=== PATIENT | male | born 1970 | race Two or more races ===

== ENCOUNTER 2019-07-26 13:57 | Inpatient (IN) | payer OTHER ==
[~2019-07-26] VITALS: Ht 175.3 cm; Wt 80.8 kg
[2019-07-26 14:36] LABS: AMPHET/METH SCREEN,URINE NEGATIVE (NEGATIVE); BARBITURATE SCREEN, URINE NEGATIVE (NEGATIVE); BENZODIAZEPINES SCREEN,URINE NEGATIVE (NEGATIVE); CANNABINOID SCREEN,URINE NEGATIVE (NEGATIVE); COCAINE SCREEN,URINE NEGATIVE (NEGATIVE); METHADONE SCREEN, URINE NEGATIVE (NEGATIVE); OPIATE SCREEN,URINE NEGATIVE (NEGATIVE); PHENCYCLIDINE SCREEN,URINE NEGATIVE (NEGATIVE)
[2019-07-26 14:37] LABS: BASOPHILS % (AUTO) 0.7 % (0.0-2.0); EOSINOPHILS % (AUTO) 2.8 % (1.0-6.0); HEMATOCRIT 49.2 % (41-53); HEMOGLOBIN 16.7 g/dL (13.5-17.5); LYMPHOCYTES # (AUTO) 1.8 K/uL (1.0-4.8); LYMPHOCYTES % (AUTO) 22.2 % (22.0-44.0); MEAN CORPUSCULAR HEMOGLOBIN 30.8 pg (26.0-34.0); MEAN CORPUSCULAR HGB CONC 33.9 G/dL (31.0-37.0); MEAN CORPUSCULAR VOLUME 91 fL (80-100); MONOCYTES # (AUTO) 0.5 K/uL (0.1-1.0); MONOCYTES % (AUTO) 5.7 % (2.0-9.0); NEUTROPHILS # (AUTO) 5.5 K/uL (1.8-7.7); NEUTROPHILS % (AUTO) 68.6 % (40.0-70.0); PLATELET COUNT (AUTO) 227 K/uL (150-450); RED BLOOD CELL COUNT(AUTO) 5.42 MIL/uL (4.50-5.90); RED CELL DISTRIBUTION WIDTH 12.6 % (11.5-14.5)
[2019-07-26 14:47] LABS: ANION GAP 12 mmol/L (8-16); CALCIUM, TOTAL 8.8 mg/dL (8.8-10.5); CARBON DIOXIDE 25 mmol/L (22-29); CHLORIDE 102 mmol/L (98-107); CREATININE 1.12 mg/dL (0.60-1.30); GLOMERULAR FILTR. RATE CALC > 60 mL/min (>60); GLUCOSE,RANDOM 123 mg/dL (70-110); SODIUM SERUM 139 mmol/L (136-145); UREA NITROGEN, BLOOD 17 mg/dL (7-18)
[2019-07-26 14:53] LABS: ALANINE AMINOTRANSFERASE 27 U/L (12-78); ALBUMIN 4.3 g/dL (3.4-5.0); ALKALINE PHOSPHATASE 75 U/L (46-116); ASPARTATE AMINOTRANSFERASE 20 U/L (15-37); TOTAL PROTEIN, SERUM 7.7 g/dL (6.4-8.2)
[2019-07-26] MEDS ORDERED: MAGNESIUM HYDROXIDE SUSPENSION 30 ML UDCUP PO PRN (17:00)
[2019-07-26 17:33] VITALS: BP 155/66
[2019-07-26 19:55] VITALS: BP 105/67
[2019-07-26] MEDS: DOCUSATE SODIUM 100 MG CAPSULE PO SCH (21:00)
[2019-07-26 23:20] VITALS: BP 101/57
[2019-07-27] VITALS (7 sets, daily range): BP systolic 91–133; BP diastolic 57–79
[2019-07-27] MEDS: ACETAMINOPHEN 325 MG TABLET PO PRN ×2 (04:18→10:34)
[2019-07-27] MEDS: FAMOTIDINE 20 MG TABLET PO SCH (08:00)
[2019-07-27] MEDS: DOCUSATE SODIUM 100 MG CAPSULE PO SCH ×2 (08:00→20:36)
[2019-07-27] MEDS: RisperiDONE 2 MG TABLET PO SCH ×2 (10:34→20:36)
[2019-07-28 04:25] VITALS: BP 144/73
[2019-07-28] MEDS: ACETAMINOPHEN 325 MG TABLET PO PRN (06:27)
[2019-07-28 07:55] VITALS: BP 112/75
[2019-07-28] MEDS: DOCUSATE SODIUM 100 MG CAPSULE PO SCH ×2 (08:09→20:21)
[2019-07-28] MEDS: RisperiDONE 2 MG TABLET PO SCH ×2 (08:09→20:21)
[2019-07-28] MEDS: FAMOTIDINE 20 MG TABLET PO SCH (08:09)
[2019-07-28 12:07] VITALS: BP 115/78
[2019-07-28 15:47] VITALS: BP 113/70
[2019-07-28 20:11] VITALS: BP 132/80
[2019-07-29 00:02] VITALS: BP 111/69
[2019-07-29 05:43] VITALS: BP 120/79
[2019-07-29 07:36] VITALS: BP 114/56
[2019-07-29] MEDS: RisperiDONE 2 MG TABLET PO SCH ×2 (07:55→20:24)
[2019-07-29] MEDS: DOCUSATE SODIUM 100 MG CAPSULE PO SCH ×2 (07:55→20:24)
[2019-07-29] MEDS: FAMOTIDINE 20 MG TABLET PO SCH (07:55)
[2019-07-29] MEDS: ACETAMINOPHEN 325 MG TABLET PO PRN ×2 (10:31→20:24)
[2019-07-29 11:40] VITALS: BP 99/55
[2019-07-29 15:40] VITALS: BP 125/84
[2019-07-29 20:04] VITALS: BP 101/66
[2019-07-30 00:08] VITALS: BP 105/65
[2019-07-30 05:45] VITALS: BP 98/59
[2019-07-30] MEDS: ACETAMINOPHEN 325 MG TABLET PO PRN (06:00)
[2019-07-30 07:47] VITALS: BP 113/54
[2019-07-30] MEDS: FAMOTIDINE 20 MG TABLET PO SCH (08:12)
[2019-07-30] MEDS: DOCUSATE SODIUM 100 MG CAPSULE PO SCH (08:12)
[2019-07-30] MEDS: RisperiDONE 2 MG TABLET PO SCH (08:12)
[2019-07-30] MEDS ORDERED: RISP2 PO (09:22)
[2019-07-30 11:14] VITALS: BP 96/66
== END 2019-07-30 12:40 | DRG 885 ==
LOC: EMS 13:58 → 6S 16:52
PROVIDERS: ADMIT Internal Medicine; ATTEND Internal Medicine
DX: F20.0 Paranoid schizophrenia (principal); F31.9 Bipolar disorder, unspecified; Z91.19 Patient's noncompliance with other medical treatment and regimen; Z79.899 Other long term (current) drug therapy
CPT/HCPCS: G0480

== ENCOUNTER 2023-06-08 18:44 | Inpatient (IN) | payer OTHER ==
[~2023-06-08] VITALS: Ht 172.7 cm; Wt 97.3 kg
[~2023-06-08 18:44] MED LIST: RISP2TAB45 PO
[2023-06-08 22:39] LABS: COVID AG,FIA SOURCE NASAL SWAB
[2023-06-08 22:41] LABS: BASOPHILS % (AUTO) 0.5 % (0.0-2.0); EOSINOPHILS % (AUTO) 1.8 % (1.0-6.0); HEMATOCRIT 44.7 % (41-53); LYMPHOCYTES # (AUTO) 1.7 K/uL (1.0-4.8); LYMPHOCYTES % (AUTO) 26.4 % (22.0-44.0); MEAN CORPUSCULAR HEMOGLOBIN 30.2 pg (26.0-34.0); MEAN CORPUSCULAR HGB CONC 33.5 G/dL (31.0-37.0); MEAN CORPUSCULAR VOLUME 90 fL (80-100); MONOCYTES # (AUTO) 0.4 K/uL (0.1-1.0); MONOCYTES % (AUTO) 6.6 % (2.0-9.0); NEUTROPHILS # (AUTO) 4.2 K/uL (1.8-7.7); NEUTROPHILS % (AUTO) 64.7 % (40.0-70.0); PLATELET COUNT (AUTO) 197 K/uL (150-450); RED BLOOD CELL COUNT(AUTO) 4.96 MIL/uL (4.50-5.90); RED CELL DISTRIBUTION WIDTH 12.9 % (11.5-14.5)
[2023-06-08 22:51] LABS: ANION GAP 12 mmol/L (8-16); CARBON DIOXIDE 28 mmol/L (22-29); CHLORIDE 104 mmol/L (98-107); CREATININE 1.06 mg/dL (0.60-1.30); GLOMERULAR FILTR. RATE CALC > 60 mL/min (>60); GLUCOSE,RANDOM 150 mg/dL (70-110); POTASSIUM 3.6 mmol/L (3.5-5.1); SODIUM SERUM 144 mmol/L (136-145)
[2023-06-08 22:57] LABS: ALANINE AMINOTRANSFERASE 36 U/L (12-78); ALBUMIN 3.6 g/dL (3.4-5.0); ALKALINE PHOSPHATASE 72 U/L (46-116); ASPARTATE AMINOTRANSFERASE 20 U/L (15-37); BILIRUBIN,TOTAL 0.9 mg/dL (0.1-1.0); TOTAL PROTEIN, SERUM 7.2 g/dL (6.4-8.2)
[2023-06-08 22:59] LABS: AMPHET/METH SCREEN,URINE NEGATIVE (NEGATIVE); BARBITURATE SCREEN, URINE NEGATIVE (NEGATIVE); BENZODIAZEPINES SCREEN,URINE NEGATIVE (NEGATIVE); CANNABINOID SCREEN,URINE NEGATIVE (NEGATIVE); COCAINE SCREEN,URINE NEGATIVE (NEGATIVE); METHADONE SCREEN, URINE NEGATIVE (NEGATIVE); OPIATE SCREEN,URINE NEGATIVE (NEGATIVE); PHENCYCLIDINE SCREEN,URINE NEGATIVE (NEGATIVE)
[2023-06-08] MEDS ORDERED: RisperiDONE 1 MG TABLET PO ONE (23:00)
[2023-06-08] MEDS ORDERED: ACETAMINOPHEN 325 MG TABLET PO PRN (23:00)
[2023-06-09 00:30] VITALS: BP 105/66; PULSE 79; RESP 20; TEMP 97.3
[2023-06-09 04:57] VITALS: BP 108/62; PULSE 75; RESP 18; TEMP 98.3
[2023-06-09] MEDS ORDERED: MAGNESIUM HYDROXIDE SUSPENSION 30 ML UDCUP PO PRN (07:45)
[2023-06-09] MEDS ORDERED: ZOLPIDEM TARTRATE 5 MG TABLET PO PRN (07:45)
[2023-06-09] MEDS ORDERED: ACETAMINOPHEN 325 MG TABLET PO PRN (07:45)
[2023-06-09 07:48] VITALS: BP 104/71; PULSE 81; RESP 18; TEMP 97.8
[2023-06-09] MEDS: FAMOTIDINE 20 MG TABLET PO SCH (08:27)
[2023-06-09] MEDS: MULTIVITAMINS WITH MINERALS, THERAPEUTIC TABLET PO SCH (11:42)
[2023-06-09 15:26] VITALS: BP 110/69; PULSE 80; RESP 20; TEMP 98.5
[2023-06-09 19:30] VITALS: BP 113/74; PULSE 58; RESP 18; TEMP 97.8
[2023-06-10 04:00] VITALS: BP 107/78; PULSE 79; RESP 20; TEMP 97.7
[2023-06-10 08:06] VITALS: BP 128/77; PULSE 71; RESP 20; TEMP 98.3
[2023-06-10] MEDS: MULTIVITAMINS WITH MINERALS, THERAPEUTIC TABLET PO SCH (08:27)
[2023-06-10] MEDS: FAMOTIDINE 20 MG TABLET PO SCH (08:27)
[2023-06-10 15:48] VITALS: BP 122/79; PULSE 74; RESP 20; TEMP 98
[2023-06-10 20:01] VITALS: BP 115/64; PULSE 92; RESP 18; TEMP 98.2
[2023-06-11 04:20] VITALS: BP 108/73; PULSE 68; RESP 20; TEMP 97.7
[2023-06-11] MEDS: FAMOTIDINE 20 MG TABLET PO SCH (07:51)
[2023-06-11] MEDS: MULTIVITAMINS WITH MINERALS, THERAPEUTIC TABLET PO SCH (07:52)
[2023-06-11 15:49] VITALS: BP 119/75; PULSE 72; RESP 20; TEMP 97.3
[2023-06-11 19:50] VITALS: BP 111/72; PULSE 86; RESP 20; TEMP 97.5
== END 2023-06-11 21:23 | DRG 885 ==
LOC: EMS 18:45 → 6S 22:30
PROVIDERS: ADMIT Internal Medicine; ATTEND Internal Medicine
DX: F29 Unspecified psychosis not due to a substance or known physiological condition (principal); F20.9 Schizophrenia, unspecified; E66.9 Obesity, unspecified; Z68.32 Body mass index [BMI] 32.0-32.9, adult; F31.9 Bipolar disorder, unspecified; Z20.822 Contact with and (suspected) exposure to COVID-19; Z79.899 Other long term (current) drug therapy
CPT/HCPCS: 80053; 80307; 85025; 99285; G0480

== ENCOUNTER 2025-03-01 20:19 | Emergency (ER) | payer OTHER ==
[~2025-03-01] VITALS: Ht 170.2 cm; Wt 88.0 kg
[~2025-03-01 20:19] MED LIST changes: +OLAN10TA74 PO; -RISP2TAB45 PO
[2025-03-01] MEDS: ACETAMINOPHEN 500 MG TABLET PO ONE (21:34)
[2025-03-01] MEDS: IBUPROFEN 600 MG TABLET PO ONE (21:35)
[2025-03-01 23:00] VITALS: BP 141/79; PULSE 82; RESP 18; TEMP 98.3; O2SAT 100
== END 2025-03-01 23:17 ==
LOC: EMS 20:19
DX: S09.90XA Unspecified injury of head, initial encounter (principal); M54.2 Cervicalgia; F20.9 Schizophrenia, unspecified; F31.9 Bipolar disorder, unspecified; Y04.0XXA Assault by unarmed brawl or fight, initial encounter; Y93.89 Activity, other specified; Y92.89 Other specified places as the place of occurrence of the external cause; Y99.8 Other external cause status
CPT/HCPCS: 70450; 72125; 99284

== ENCOUNTER 2025-03-10 20:25 | Inpatient (IN) | payer OTHER ==
[~2025-03-10] VITALS: Ht 170.2 cm; Wt 84.0 kg
[2025-03-10 21:06] LABS: BASOPHILS % (AUTO) 0.6 % (0.0-2.0); EOSINOPHILS % (AUTO) 1.4 % (1.0-6.0); HEMATOCRIT 45.3 % (41-53); HEMOGLOBIN 15.3 g/dL (13.5-17.5); LYMPHOCYTES # (AUTO) 1.7 K/uL (1.0-4.8); LYMPHOCYTES % (AUTO) 27.1 % (22.0-44.0); MEAN CORPUSCULAR HEMOGLOBIN 29.5 pg (26.0-34.0); MEAN CORPUSCULAR HGB CONC 33.8 G/dL (31.0-37.0); MEAN CORPUSCULAR VOLUME 87 fL (80-100); MONOCYTES # (AUTO) 0.3 K/uL (0.1-1.0); MONOCYTES % (AUTO) 5.4 % (2.0-9.0); NEUTROPHILS # (AUTO) 4.2 K/uL (1.8-7.7); NEUTROPHILS % (AUTO) 65.5 % (40.0-70.0); PLATELET COUNT (AUTO) 204 K/uL (150-450); RED BLOOD CELL COUNT(AUTO) 5.19 MIL/uL (4.50-5.90); RED CELL DISTRIBUTION WIDTH 13.9 % (11.5-14.5); WHITE BLOOD COUNT (AUTO) 6.4 K/uL (4.5-11.0)
[2025-03-10 21:14] LABS: ANION GAP 4 mmol/L (8-16); CALCIUM, TOTAL 9.3 mg/dL (8.8-10.5); CARBON DIOXIDE 30 mmol/L (22-29); CHLORIDE 102 mmol/L (98-107); CREATININE 0.89 mg/dL (0.60-1.30); GLOMERULAR FILTR. RATE CALC > 60 mL/min (>60); GLUCOSE,RANDOM 97 mg/dL (70-110); POTASSIUM 3.8 mmol/L (3.5-5.1); SODIUM SERUM 136 mmol/L (136-145); UREA NITROGEN, BLOOD 13 mg/dL (7-18)
[2025-03-10 21:21] LABS: ALCOHOL, BLOOD (SERUM) < 3 mg/dL (0-10)
[2025-03-10 23:20] LABS: COVID AG,FIA SOURCE NASAL SWAB
[2025-03-10 23:23] LABS: APPEARANCE,URINE CLEAR (CLEAR); BILIRUBIN,URINE NEGATIVE (NEGATIVE); COLOR,URINE COLORLESS (YELLOW); GLUCOSE, URINE (UA) NEGATIVE (NEGATIVE); KETONES,URINE NEGATIVE (NEGATIVE); LEUKOCYTE ESTERASE ,URINE NEGATIVE (NEGATIVE); NITRATE,URINE NEGATIVE (NEGATIVE); OCCULT BLOOD,URINE NEGATIVE (NEGATIVE); PROTEIN,URINE NEGATIVE (NEGATIVE); SPECIFIC GRAVITIY, URINE 1.002 (1.003-1.030); UROBILINOGEN,URINE <=1.0 mg/dL (<=1.0)
[2025-03-10] MEDS ORDERED: ZOLPIDEM TARTRATE 5 MG TABLET PO PRN (23:30)
[2025-03-10] MEDS ORDERED: MAGNESIUM HYDROXIDE SUSPENSION 30 ML UDCUP PO PRN (23:30)
[2025-03-10 23:31] LABS: ALCOHOL, URINE DRUG SCREEN NEGATIVE (NEGATIVE); AMPHET/METH SCREEN,URINE NEGATIVE (NEGATIVE); BARBITURATE SCREEN, URINE NEGATIVE (NEGATIVE); BENZODIAZEPINES SCREEN,URINE NEGATIVE (NEGATIVE); CANNABINOID SCREEN,URINE NEGATIVE (NEGATIVE); COCAINE SCREEN,URINE NEGATIVE (NEGATIVE); METHADONE SCREEN, URINE NEGATIVE (NEGATIVE); OPIATE SCREEN,URINE NEGATIVE (NEGATIVE); PHENCYCLIDINE SCREEN,URINE NEGATIVE (NEGATIVE)
[2025-03-10 23:47] LABS: SARS-COV2 (COVID) ANTIGEN,FIA Negative (Negative)
[2025-03-11 00:34] VITALS: BP 107/72; PULSE 61; RESP 20; TEMP 97.3; O2SAT 98
[2025-03-11 05:33] VITALS: BP 104/69; PULSE 75; RESP 18; TEMP 97.5; O2SAT 97
[2025-03-11 08:51] VITALS: BP 101/65; PULSE 64; RESP 18; TEMP 98.1; O2SAT 97
[2025-03-11] MEDS: FAMOTIDINE 20 MG TABLET PO SCH (09:01)
[2025-03-11] MEDS: OLANZapine 10 MG TABLET PO SCH (12:18)
[2025-03-11 21:30] VITALS: BP 101/63; PULSE 77; RESP 18; TEMP 97.2; O2SAT 97
[2025-03-12 04:06] LABS: HEPATITIS C AB (EIA) Non Reactive (Non Reactive)
[2025-03-12 06:01] VITALS: BP 120/69; PULSE 67; RESP 18; TEMP 97.9; O2SAT 99
[2025-03-12 08:06] VITALS: BP 111/73; PULSE 66; RESP 18; TEMP 98.1; O2SAT 100
[2025-03-12] MEDS: ACETAMINOPHEN 325 MG TABLET PO PRN (08:43)
[2025-03-12 20:14] VITALS: BP 113/60; PULSE 76; RESP 18; TEMP 97.9; O2SAT 98
[2025-03-13 04:31] VITALS: BP 104/66; PULSE 64; RESP 18; TEMP 97.7; O2SAT 96
[2025-03-13 08:00] VITALS: BP 126/76; PULSE 73; RESP 19; TEMP 97.7; O2SAT 97
[2025-03-13] MEDS: PENICILLIN G BENZATHINE LA 2,400,000 UNITS/4 ML SYRINGE IM ONE (11:39)
[2025-03-13 19:39] VITALS: BP 121/75; PULSE 79; RESP 20; TEMP 97.8; O2SAT 95
[2025-03-14 02:06] LABS: TREPONEMA PALLIDUM AB -TPPA Reactive (Non Reactive)
[2025-03-14 04:29] VITALS: BP 108/74; PULSE 63; RESP 18; TEMP 97.7; O2SAT 98
[2025-03-14 08:03] VITALS: BP 126/74; PULSE 68; RESP 18; TEMP 97.7; O2SAT 98
[2025-03-14] MEDS: ARIPiprazole 10 MG TABLET PO SCH (16:17)
[2025-03-14 19:27] VITALS: BP 107/75; PULSE 79; RESP 18; TEMP 97.9; O2SAT 96
[2025-03-15 04:16] VITALS: BP 120/75; PULSE 75; RESP 18; TEMP 97.9; O2SAT 97
[2025-03-15 07:38] VITALS: BP 114/81; PULSE 65; RESP 18; TEMP 97.7; O2SAT 95
[2025-03-15 10:42] LABS: BASOPHILS % (AUTO) 0.7 % (0.0-2.0); HEMATOCRIT 47.7 % (41-53); HEMOGLOBIN 15.9 g/dL (13.5-17.5); LYMPHOCYTES # (AUTO) 1.8 K/uL (1.0-4.8); LYMPHOCYTES % (AUTO) 24.3 % (22.0-44.0); MEAN CORPUSCULAR HEMOGLOBIN 29.4 pg (26.0-34.0); MEAN CORPUSCULAR HGB CONC 33.4 G/dL (31.0-37.0); MEAN CORPUSCULAR VOLUME 88 fL (80-100); MONOCYTES # (AUTO) 0.4 K/uL (0.1-1.0); PLATELET COUNT (AUTO) 203 K/uL (150-450); RED BLOOD CELL COUNT(AUTO) 5.42 MIL/uL (4.50-5.90); RED CELL DISTRIBUTION WIDTH 13.9 % (11.5-14.5); WHITE BLOOD COUNT (AUTO) 7.5 K/uL (4.5-11.0)
[2025-03-15 10:53] LABS: ANION GAP 6 mmol/L (8-16); CARBON DIOXIDE 29 mmol/L (22-29); CHLORIDE 102 mmol/L (98-107); CREATININE 0.85 mg/dL (0.60-1.30); GLOMERULAR FILTR. RATE CALC > 60 mL/min (>60); GLUCOSE,RANDOM 144 mg/dL (70-110); SODIUM SERUM 137 mmol/L (136-145); UREA NITROGEN, BLOOD 13 mg/dL (7-18)
[2025-03-15] MEDS ORDERED: ARIP10TA38 PO (11:56)
[2025-03-15] MEDS ORDERED: MAGN-169 PO (11:57)
[2025-03-15] MEDS ORDERED: ACET-2247 PO (11:57)
[2025-03-15] MEDS ORDERED: FAMO20 PO (12:06)
== END 2025-03-15 13:56 | DRG 885 ==
LOC: EMS 20:25 → EDH 23:17 → 6S 03-11 00:25 → 6N 03-12 16:33
PROVIDERS: ADMIT Internal Medicine; ATTEND Internal Medicine
DX: F25.1 Schizoaffective disorder, depressive type (principal); R45.851 Suicidal ideations; K42.9 Umbilical hernia without obstruction or gangrene; Z20.822 Contact with and (suspected) exposure to COVID-19; F31.9 Bipolar disorder, unspecified; Z91.199 Patient's noncompliance with other medical treatment and regimen due to unspecified reason
CPT/HCPCS: 12013; 80048; 80307; 81003; 85025; 86592; 86593; 86780; 86803; 87340; 99285; G0378; G0480; J0561